=== PATIENT | female | born 1995 | race Two or more races ===

== ENCOUNTER → 2019-09-05 | Outpatient (REF) | payer OTHER | LOC: M SFHCLERA 10:05 | PROVIDERS: ATTEND Physician Assistant | DX: R30.0 Dysuria (principal) | CPT/HCPCS: 81002; 81025; 87088; 87186; G0463 ==

== ENCOUNTER → 2019-10-13 | Outpatient (REF) | payer OTHER | LOC: M SFHCLERA 14:12 | PROVIDERS: ATTEND Nurse Practitioner Family | DX: R53.81 Other malaise (principal) ==

== ENCOUNTER 2020-07-11 06:29 | Inpatient (IN) | payer OTHER ==
[~2020-07-11] VITALS: Ht 157.5 cm; Wt 82.5 kg
[2020-07-11 06:55] VITALS: BP 119/71
[2020-07-11] MEDS ORDERED: PEPC1TAB5 PO (06:59)
[2020-07-11] MEDS ORDERED: PRENTAB9 PO (06:59)
[2020-07-11] MEDS ORDERED: LEXA5TAB13 PO (06:59)
[2020-07-11] MEDS ORDERED: LEXA1TAB PO (06:59)
[2020-07-11] MEDS ORDERED: MAPA500T2 PO (06:59)
[2020-07-11] MEDS: PRENATAL VITAMINS CHEWABLE TABLET PO SCH (09:00)
[2020-07-11] MEDS ORDERED: FENTANYL 2MCG/ML ROPIVACAINE 0.2% IN 0.9% NACL 100ML IVBAG As Ordered ONE (09:55)
[2020-07-11] MEDS ORDERED: LR 1,000 ML IV SCH (10:08)
[2020-07-11 10:18] VITALS: BP 122/72
[2020-07-11 10:42] LABS: HEMATOCRIT 37.3 % (36.0-47.0); HEMOGLOBIN 12.6 g/dl (12.0-15.5); MEAN CORPUSCULAR HEMOGLOBIN 30.1 pg (27.0-33.0); MEAN CORPUSCULAR HGB CONC 33.8 g/dl (32.0-36.5); MEAN CORPUSCULAR VOLUME 89.2 fl (80.0-96.0); PLATELET COUNT, AUTOMATED 236 10^3/uL (150-450); RED BLOOD COUNT 4.18 10^6/uL (4.00-5.40); WHITE BLOOD COUNT 10.6 10^3/uL (4.0-10.0)
--- NOTE | 2020-07-11 10:46 | HPEPDOC ---
Obstetrical History & Physical General Date of Admission Jul 11, 2020 at 09:52 History of Present Illness Patient reports gradually worsening painful ctx's since 0100 this morning. Endorses spotting VB. Denies DFM or LOF. She was seen in triage at 0730 and found to be 3-4/90/-3 and sent walking. She reports now 2.5hrs later that her ctx's are worse. She desires epidural for pain mgmt. Chief Complaint: Contractions, term Information Provided By: Patient Age: 24 : 4 Term: 2 Pre-term: 0 Abortions: 1 Livin Care Care: Good Care Dating Final EDC: Jul 13, 2020 Final EDC for Daily Update: Jul 13, 2020 Final EDC by: LMP LMP: Oct 07, 2019 1st Trimester Date: Dec 10, 2019 Weeks + Days: 9 (+0) EGA at Admission: 39 (+5) Antepartum Course Diagnos(e)s Obesity in Anxiety Depression Height (inches): 62 Pre- weight (lbs.): 171 Admission Weight (lbs.): 181 Change in Weight (lbs.): 10 Past Medical History Past Obstetrical History #1: Past Obstetrical History: Multigravida Date of Delivery: May 19, 2015 (ETOP via D&C) Past Obstetrical History #2: Past Obstetrical History: Multigravida Date of Delivery: Nov 30, 2014 Gestation: 38 Type of Delivery: Spontaneous Vaginal Del. ([id number]) Sex of : Female Complications: No Past Obstetrical History #3: Past Obstetrical History: Multigravida Date of Delivery: March 19, 2016 Gestation: 40 Type of Delivery: Spontaneous Vaginal Del. 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 malformation), purpura) Social History Marital Status: Family situation: Spouse/partner home Psychosocial History: Anxiety, Depression * Smoker: non-smoker Alcohol: Denies Drugs: denies Abuse Violence Screening Have you been hit/kicked/slapp: No Have you been sexually assault: No Imunizations Tdap status: current (04/23/2020 ) Influenza Status: current (01/07/2020) Allergies Coded Allergies: peanut (Verified Allergy, Mild, itchy throat, 07/11/20) POLLEN (Verified Allergy, Unknown, itchy watery eyes, runny nose, 07/11/20) [place] (Verified Allergy, Unknown, itchy throat, 07/11/20) tree nut (Verified Allergy, Unknown, itchy throat, 07/11/20) Uncoded Allergies: apples (Allergy, Unknown, itchy tongue, 07/11/20) Medications Scheduled Escitalopram Oxalate (Lexapro) 10 Mg Tablet, 1 TAB PO DAILY Escitalopram Oxalate (Lexapro) 5 Mg Tablet, 1 TAB PO DAILY Famotidine (Pepcid) 20 Mg Tablet, 1 TAB PO BID No.137/Iron/Folic Acd ( Vitamin Tablet) 1 Each Tablet, 1 TAB PO DAILY Miscellaneous Medications Acetaminophen (Mapap) 500 Mg Tablet, 1,000 MG PO Physical Examination Physical Examination GENERAL: Alert and oriented times three. HEENT: NC/AT, airway patent and self-maintained ABDOMEN: Gravid and non-tender to touch. FETUS: Is vertex (VTX) by sterile vaginal examination (SVE), fetus is vertex (VTX) by Rodrigo. CARDS: Well-perfused RESP: No exaggerated respiratory effort appreciated SVE: 6/c/-1. Membranes intact. EXTREMITIES: No edema. Vital Signs/I&O Vital Signs Date Time Temp Pulse Resp B/P (MAP) Pulse Ox O2 Delivery O2 Flow Rate FiO2 07/11/20 06:55 97.9 65 16 119/71 (87) Laboratory Data 24H LABS Laboratory Tests 2 07/11/20 10:11: Serology Scanned Report Hepatitis B Testing Urine Culture: No Growth Pertinent Laboratoy Data Blood Type: B+ RBC Antibody Screen: Negative HIV: Negative Hepatitis B: Negative Rapid Plasma Reagin: Nonreactive Rubella: Immune Varicella: Immune Chlamydia/Gonorrhea: Negative Group B Streptococcus: Negative Quad Screen Test: Declined Cystic Fibrosis: Negative Glucose Tolerance Test: 78 Anatomy Ultrasound Ultrasound Date: Feb 24, 2020 Placenta Location: Anterior Normal Anatomy: Yes Placenta Previa: No Estimated Weight (grams): 290 Vaginal Examination Dilation: 6 cm Effacement: 100% Station: -1 Cervical Consistency: Soft Cervical Position: Anterior Presentation: Cephalic presentation Position: Vertex (occiput) Assessment Heart Rate (FHR): 130 Variability: Moderate Accelerations: Positive Decelerations: None Tocometer Contractions: Yes Frequency: every 2-5 min. Multi-drug resistant Organism: No history of MDRO Assessment/Plan Assessment 24yo at 39+5 presenting for ctx's. Patient sent walking from triage and upon return found to be 6/c/-1. Patient in active labor. GBS neg. EFW 3600g. Plan Admit and orient. Concrete Sculptor and consent. Diet: clears as tolerated Group B Streptococcus (GBS) [negative]. Labs and intravenous (IV) per unit protocol. Counseled on AROM, Pitocin and augmentation of labor . Lactated Ringers (LR): Bolus 1000mL for epidural, then at 125 ml/hr. Anticipate . Patient may have epidural as desired for pain control C-S as appropriate. JOE CAMARENA DO Jul 11, 2020 10:46
[2020-07-11] MEDS ORDERED: ePHEDrine SULFATE 25 MG/5 ML(5MG/ML) SYRINGE IV PRN (11:45)
[2020-07-11] MEDS ORDERED: diphenhydrAMINE 50MG/ML VIAL (J1200) IV PRN (11:45)
[2020-07-11] MEDS ORDERED: LACTATED RINGER'S 1000 ML IV PRN (11:45)
[2020-07-11] MEDS ORDERED: NALOXONE INJ 0.4MG/1ML VIAL (J2310 PER 1MG) IV PRN (11:45)
[2020-07-11] MEDS ORDERED: REFRIGERATOR IV KEYS XX PRN (11:45)
[2020-07-11] MEDS ORDERED: ONDANSETRON 4MG/2ML VIAL IV PRN (11:45)
[2020-07-11] MEDS ORDERED: EPIDURAL COMMENT XX SCH (11:45)
[2020-07-11] MEDS ORDERED: FENTANYL/ROPIVACAINE/NACL BAG 100 ML EPIDURAL SCH (11:45)
[2020-07-11] MEDS ORDERED: EPIDURAL/PCA KEYS XX PRN (11:45)
[2020-07-11] MEDS ORDERED: OXYTOCIN 30 UNITS IN 0.9% NaCl 500ML IV BAG (J2590) As Ordered ONE (11:51)
[2020-07-11] MEDS ORDERED: ESCITALOPRAM OXALATE 10 MG TAB (LEXAPRO) PO ONE (12:00)
--- NOTE | 2020-07-11 12:23 | IPNPDOC ---
Obstetrical Progress Note Date of Service Jul 11, 2020 Subjective Patient reports feeling comfortable with epidural but endorses significant pelvic pressure L>R side. Objective Vital Signs Date Time Temp Pulse Resp B/P (MAP) Pulse Ox O2 Delivery O2 Flow Rate FiO2 07/11/20 10:18 97.3 66 18 122/72 (89) Assessment Heart Rate (FHR): 140 Variability: Moderate Accelerations: None Decelerations: None Heart Rate Tracing: Category I Tocometer Contractions: Yes Frequency: every 1-3 min. Sterile Vaginal Examination Dilation: 8 cm Effacement (%): 100% Station: 0 Cervical Consistency: Soft Cervical Position: Anterior Postion/Presentation: Cephalic presentation Assessment and Plan Status: Reassuring Group B Streptococcus: Negative Anticipate: Vaginal Delivery Additional Comments Patient found to be 8/c/0. Patient counseled and informed consent obtained. AROM performed notable for meconium fluid. FHRT cat I. Patient has made spontaneous cervical change on maternal effort alone. Will continue to monitor for expectant . JOE CAMARENA DO Jul 11, 2020 12:23
[2020-07-11] MEDS ORDERED: OXYTOCIN DRIP 30 UNITS in IV 1 EA IV SCH (12:46)
--- NOTE | 2020-07-11 12:51 | DNPDOC ---
[facility] Delivery Note Delivery Note DATE OF DELIVERY: [id number] PREDELIVERY DIAGNOSIS: 39+5/7 weeks' gestation and labor. POST DELIVERY DIAGNOSIS: Delivered. PROCEDURE: Spontaneous vaginal delivery. PAINTLESS DENT REPAIR TECHNICIAN: Dr. Joe Camarena ANESTHESIA: Epidural. ESTIMATED BLOOD LOSS: 50 mL. FINDINGS: 6 pound 1 ounce 2740g male infant, Score 8/9, nuchal cord times x1, body cord x1, meconium fluid. DELIVERY SUMMARY: Patient is a 24-year-old 4 now para 3013 who was ad mitted to labor and delivery for active labor. Patient progressed on maternal effort alone after AROM to c/c/+3. With excellent maternal effort, spontaneous vaginal delivery of a viable term male infant. Presentation was OA with restitution to ROT with left shoulder anterior position. Anterior shoulder and body delivered without difficulty. Nuchal cord x1 and body cord x1 appreciated that were delivered through. Meconium present. with spontaneous cry therefore placed on maternal abdomen with care transferred to awaiting Fisher Team. Pitocin IV bolus initiated. After 5 minutes of delayed cord clamping per patient request, three vessel cord clamped x2 and cut by FOB. Third stage spontaneous with intact placenta. Inspection revealed no lacerations. EBL 50ml. Mother and infant stable and bonding upon my leaving the room. JOE CAMARENA DO Jul 11, 2020 12:51
[2020-07-11] MEDS ORDERED: DOCUSATE SODIUM 100 MG CAP PO PRN (13:00)
[2020-07-11] MEDS ORDERED: IBUPROFEN 600MG TAB PO PRN (13:00)
[2020-07-11] MEDS ORDERED: ACETAMINOPHEN TAB 650MG DOSE (2X325MG) PO PRN (13:00)
[2020-07-11] MEDS ORDERED: DIBUCAINE 1% OINTMENT 30GM TOP PRN (13:00)
[2020-07-11] MEDS ORDERED: SLF 3 ML SYR IV PRN (14:30)
[2020-07-11 15:08] VITALS: BP 124/71
[2020-07-11 17:48] VITALS: BP 124/71
[2020-07-11] MEDS: IBUPROFEN 800 MG TAB PO PRN (19:00)
[2020-07-11] MEDS ORDERED: ESCITALOPRAM OXALATE 10 MG TAB (LEXAPRO) PO SCH (21:00)
[2020-07-11] MEDS: ESCITALOPRAM OXALATE 10 MG TAB (LEXAPRO) PO SCH (21:07)
[2020-07-11] MEDS ORDERED: SLF 3 ML SYR IV SCH (22:00)
[2020-07-12] MEDS: ACETAMINOPHEN 500 MG TAB PO PRN ×3 (01:49→20:58)
[2020-07-12] MEDS: IBUPROFEN 800 MG TAB PO PRN ×2 (05:44→15:39)
[2020-07-12 06:00] VITALS: BP 101/50
--- NOTE | 2020-07-12 07:57 | IPNPDOC ---
Progress Note Date of Service: Jul 12, 2020 Day#: 1 Progress Note SUBJECT: 24yo PPD#1 status post uncomplicated spontaneous vaginal delivery over intact perineum. She has been ambulating, voiding spontaneously without issue and tolerating regular diet. Breast feeding without issue using a nipple shield for assistance. Reports lochia is decreasing. Patient is ambulating well. Reports pelvic/vulvar pain that is controlled with pain medications. OBJECTIVE: VITAL SIGNS: Within normal limits, afebrile. Alert and oriented times three. RESP: no exaggerated respiratory effort appreciated CARDS: well-perfused Abdomen: Fundus firm at U-2. Soft, NTTP. : Scant lochia, minimal edema Ext: no edema, no calf tenderness ASSESSMENT: 24yo status PPD#1 s/p over intact perineum. Vitals within normal limits, afebrile, hemodynamically stable with no evidence of infection. PLAN: 1. Discharge to home tomorrow with 2. Continue current pain mgmt. 3. Encourage breast feeding and ambulation. 4. Encourage regular diet as tolerated 5. Routine PP visit in 6 weeks in clinic. 6. Discussed return precautions at length. VS, I&O, 24H, Fishbone Vital Signs/I&O Vital Signs Date Time Temp Pulse Resp B/P (MAP) Pulse Ox O2 Delivery O2 Flow Rate FiO2 07/12/20 06:00 97.7 67 18 101/50 (67) 07/11/20 17:48 100 I&O- Last 24 Hours up to 6 AM 07/12/20 06:01 Intake Total 1500 ml Output Total 650 ml Balance 850 ml Laboratory Data 24H LABS Laboratory Tests 2 07/11/20 10:11: Serology Scanned Report Hepatitis B Testing 07/11/20 10:29: Nucleated Red Blood Cells % (auto) 0.0 CBC/BMP Laboratory Tests 07/11/20 10:29 JOE CAMARENA DO Jul 12, 2020 07:57
[2020-07-12] MEDS ORDERED: INFLUENZA QUADRIVALENT PF VACCINE 0.5ML SYRINGE IM ONE (09:00)
[2020-07-12] MEDS: PRENATAL VITAMINS CHEWABLE TABLET PO SCH (09:35)
[2020-07-12] MEDS: OMEPRAZOLE 20 MG CAP PO SCH (09:35)
[2020-07-12 18:00] VITALS: BP 119/65
[2020-07-12] MEDS: ESCITALOPRAM OXALATE 10 MG TAB (LEXAPRO) PO SCH (20:58)
[2020-07-13] MEDS: IBUPROFEN 800 MG TAB PO PRN (05:12)
[2020-07-13 05:29] VITALS: BP 103/55
[2020-07-13] MEDS ORDERED: INFLUENZA QUADRIVALENT PF VACCINE 0.5ML SYRINGE IM ONE (09:00)
[2020-07-13] MEDS: PRENATAL VITAMINS CHEWABLE TABLET PO SCH (09:46)
[2020-07-13] MEDS: OMEPRAZOLE 20 MG CAP PO SCH (09:46)
[2020-07-13] MEDS: ACETAMINOPHEN 500 MG TAB PO PRN (09:47)
--- NOTE | 2020-07-19 18:18 | IPN ---
DATE: 07/12/2020 HISTORY: This patient requested a circumcision of her male . PLAN: After discussing risks and benefits of the circumcision, the medical and non-medical indications, the penile block and after care expressed understanding of penile block and after care and bleeding, signed the Consent Form, all questions were answered, 20 minute discussion, we await the clearance by the drywall sprayer. SUHA
== END 2020-07-13 11:00 | disposition home or self-care (01) | DRG 807 ==
LOC: M LDO 06:29 → M LDI 09:52 → M OBS 15:02
PROVIDERS: ADMIT Registered Nurse; ATTEND Registered Nurse
PROC: 10E0XZZ Delivery of Products of Conception, External Approach (ICD-10-PCS; principal; 2020-07-11)
DX: O69.81X0 Labor and delivery complicated by cord around neck, without compression, not applicable or unspecified (principal); Z37.0 Single live birth; Z3A.39 39 weeks gestation of pregnancy; E66.9 Obesity, unspecified; O99.214 Obesity complicating childbirth; Z68.30 Body mass index [BMI] 30.0-30.9, adult; Z91.018 Allergy to other foods; Z79.899 Other long term (current) drug therapy; Z91.010 Allergy to peanuts; O77.0 Labor and delivery complicated by meconium in amniotic fluid; O69.82X0 Labor and delivery complicated by other cord entanglement, without compression, not applicable or unspecified

== ENCOUNTER → 2020-11-15 | Outpatient (CLI) | payer OTHER ==
[~2020-11-15] MED LIST: LEXA1TAB PO; LEXA5TAB13 PO; MAPA500T2 PO; PEPC1TAB5 PO; PRENTAB9 PO
--- NOTE | 2020-11-15 10:34 | REP ---
INDICATION: PAIN COMPARISON: None. TECHNIQUE: AP, lateral, bilateral oblique views right foot. FINDINGS: The osseous structures and joint spaces are intact and normal. There is no evidence for acute fracture or dislocation. Surrounding soft tissues are unremarkable. No subcutaneous emphysema or radiodense foreign body. IMPRESSION: Normal right foot series <Electronically signed by Waqar Douglas > 11/15/20 1033
== END ==
LOC: M WUC 10:10
PROVIDERS: ATTEND Physician Assistant
DX: M79.671 Pain in right foot (principal)

== ENCOUNTER 2022-06-14 08:40 | Day surgery (SDC) | payer OTHER ==
[~2022-06-14] VITALS: Ht 157.5 cm; Wt 78.5 kg
[~2022-06-14 08:40] MED LIST changes: +ACETAMINOPHEN 650 MG SUPP PR ONE; +CETI10CA2 PO; +MONT10TA97 PO; +NS 1,000 ML IV SCH; +OMEP40CA4 PO; +WELL100T2 PO
[2022-06-14 09:10] LABS: HEMATOCRIT 40.4 % (36.0-47.0); HEMOGLOBIN 13.3 g/dl (12.0-15.5); MEAN CORPUSCULAR HEMOGLOBIN 29.3 pg (27.0-33.0); MEAN CORPUSCULAR HGB CONC 32.9 g/dl (32.0-36.5); PLATELET COUNT, AUTOMATED 309 10^3/uL (150-450); RED BLOOD COUNT 4.54 10^6/uL (4.00-5.40); WHITE BLOOD COUNT 6.2 10^3/uL (4.0-10.0)
[2022-06-14] MEDS ORDERED: LR 1,000 ML IV SCH ×2 (09:20→13:00)
[2022-06-14 09:52] LABS: BLOOD UREA NITROGEN 19 MG/DL (7-18); CALCIUM LEVEL 9.3 MG/DL (8.5-10.1); CARBON DIOXIDE LEVEL 29 MEQ/L (21-32); CHLORIDE LEVEL 105 MEQ/L (98-107); CREATININE FOR GFR 0.91 MG/DL (0.55-1.30); GLOMERULAR FILTRATION RATE > 60.0 (>60); GLUCOSE, FASTING 96 MG/DL (70-100); HCG, SERUM QUANTITATIVE < 1.0 MIU/ML; POTASSIUM SERUM 4.6 MEQ/L (3.5-5.1); SODIUM LEVEL 139 MEQ/L (136-145)
[2022-06-14] MEDS ORDERED: MIDAZOLAM INJ 2MG/2ML VIAL (J2250 PER 1MG) As Ordered ONE (10:43)
[2022-06-14] MEDS ORDERED: fentaNYL 100 MCG/2 ML INJECTION As Ordered ONE (10:43)
[2022-06-14] MEDS ORDERED: BUPIVACAINE HCL 0.5% 30ML VIAL As Ordered ONE (11:23)
[2022-06-14] MEDS ORDERED: ACETAMINOPHEN 650 MG SUPP As Ordered ONE (11:41)
[2022-06-14] MEDS ORDERED: dexameTHASONE 4 MG/ML 1ML VIAL (J1100 PER 1MG) As Ordered ONE (11:46)
[2022-06-14] MEDS ORDERED: ePHEDrine SULFATE 25 MG/5 ML(5MG/ML) SYRINGE As Ordered ONE (11:51)
[2022-06-14] MEDS ORDERED: propofoL 200 MG/20 ML VIAL As Ordered ONE (11:56)
[2022-06-14] MEDS ORDERED: LIDOCAINE 2% 100MG/5ML SDV (FOR ANES.) As Ordered ONE (11:56)
[2022-06-14] MEDS ORDERED: SUGAMMADEX SODIUM 500 MG/5 ML VIAL (BRIDION) As Ordered ONE (11:56)
[2022-06-14] MEDS ORDERED: ROCURONIUM BROMIDE 50 MG/5 ML VIAL As Ordered ONE (11:56)
[2022-06-14] MEDS ORDERED: KETOROLAC 60MG 2ML VIAL As Ordered ONE (11:57)
[2022-06-14] MEDS ORDERED: ONDANSETRON 4MG 2ML VIAL As Ordered ONE (11:58)
[2022-06-14] MEDS ORDERED: PHENYLephrine 500MCG 5ML (100MCG/ML) SYRINGE As Ordered ONE (12:00)
[2022-06-14] MEDS ORDERED: SEVOFLURANE INHAL SOLN 250 ML BTL As Ordered ONE (12:01)
[2022-06-14] MEDS ORDERED: HYDROmorphone HCL 2MG/ML 1ML VIAL As Ordered ONE (12:10)
[2022-06-14] MEDS ORDERED: HYDROMORPHONE HCL 0.5 MG/ 0.5 ML SYRINGE (J1170 PER 1) IV PRN (13:00)
[2022-06-14] MEDS ORDERED: fentaNYL 100 MCG/2 ML INJECTION IV PRN (13:00)
[2022-06-14] MEDS ORDERED: ONDANSETRON 4MG 2ML VIAL IV PRN (13:00)
[2022-06-14] MEDS ORDERED: oxyCODONE 5MG TAB PO PRN (13:00)
[2022-06-14 15:49] VITALS: BP 132/64
[2022-06-14] MEDS ORDERED: KETOROLAC 30 MG/ML 1ML VIAL IV PRN (18:00)
== END 2022-06-14 16:30 | disposition home or self-care (01) ==
LOC: M SDC 08:40
PROVIDERS: ATTEND Obstetrics & Gynecology
DX: Z30.2 Encounter for sterilization (principal); K21.9 Gastro-esophageal reflux disease without esophagitis; J45.909 Unspecified asthma, uncomplicated; Z79.899 Other long term (current) drug therapy; Z87.891 Personal history of nicotine dependence; Z91.018 Allergy to other foods; Z91.010 Allergy to peanuts; J30.2 Other seasonal allergic rhinitis
CPT/HCPCS: 36415; 58661; 80048; 84702; 85027; 88302; J1100; J1170; J1885; J2250; J2370; J2405; J3010